=== PATIENT | male | born 1975 | race American Indian/Alaskan Native ===

== ENCOUNTER 2017-03-17 06:34 | Emergency (ER) | payer MEDICAID, MEDICARE, OTHER ==
[2017-03-17 06:37] VITALS: BMI 30.3
[2017-03-17 06:54] VITALS: RESP 16
[2017-03-17 07:48] LABS: BASO % 0.3 % (0.0-2.0); EOS % 0.4 % (0.0-4.0); HEMOGLOBIN 13.5 g/dL (12.0-18.0); LYMPH # 2.3 K/uL (1.0-4.3); MEAN CELL VOLUME 89.9 fL (80.0-94.0); MEAN CORPUSCULAR HEMOGLOBIN 31.2 pg (27.0-31.0); MEAN CORPUSCULAR HGB CONC 34.7 g/dL (33.0-37.0); MEAN PLATELET VOLUME 8.4 fL (7.2-11.7); MONO # 0.9 K/uL (0.0-0.8); MONO % 10.5 % (0.0-10.0); NEUT # 5.5 K/uL (1.8-7.0); NEUT % 62.8 % (50.0-75.0); RBC 4.34 Mil/uL (4.40-5.90); RED CELL DISTRIBUTION WIDTH 12.5 % (11.5-14.5); WHITE BLOOD COUNT 8.7 K/uL (4.8-10.8)
[2017-03-17 08:02] LABS: DILANTIN (PHENYTOIN) 9.3 ug/mL (10-20)
[2017-03-17] MEDS ORDERED: PHENYTOIN IV STA (08:05)
[2017-03-17] MEDS ORDERED: SODIUM CHLORIDE 0.9% IV STA (08:05)
[2017-03-17 08:08] LABS: ALB/GLOB RATIO 1.1 (1.0-2.1); ALT/SGPT 30 U/L (21-72); AST/SGOT 38 U/L (17-59); BLOOD UREA NITROGEN 15 mg/dL (9-20); CALCIUM 8.5 mg/dl (8.6-10.4); GFR AFRICAN-AMERICAN > 60; GFR NON-AFRICAN AMERICAN > 60
--- NOTE | 2017-03-17 08:12 | C.PDOC ---
History Of Present Illness 41 year old male presents to ED for evaluation of seizure witnessed by his father last night. Pt states that he ran out of his seizure medication 1 month ago, notes that he normally takes Dilantin, and Depakote. Otherwise, denies fever, chills, cough, visual changes, tongue biting, bowel/bladder incontinence , head injury, chest pain, or shortness of breath. Time Seen by Provider: 03/17/17 07:11 Chief Complaint (Nursing): Seizure History Per: Patient History/Exam Limitations: no limitations Recent Seizure Activity Began: Days Ago: Length Of Seizures (Duration): Unknown Recent travel outside of the [place]: No Additional History Per: Patient Past Medical History Reviewed: Historical Data, Nursing Documentation, Vital Signs Vital Signs: Last Vital Signs Temp 98.1 F 03/17/17 06:43 Pulse 110 H 03/17/17 06:43 Resp 16 03/17/17 06:43 BP 145/92 H 03/17/17 06:43 Pulse Ox 99 03/17/17 08:34 - Medical History PMH: Anxiety, Asthma, Bipolar Disorder, Depression, HTN, Schizophrenia, Seizures (since he was 11 yo) Denies: Diabetes, Hepatitis, HIV, Chronic Kidney Disease, Sexually Transmitted Disease - [facility] Procedures EDUCATIONAL COUNSELING (04/18/15) GROUP TEXTILE SCRAP SALVAGER FOR SUBSTANCE ABUSE TREATMENT, PSYCHOEDUCATION (09/27/15) GROUP PSYCHOTHERAPY (12/07/15) MAGNETIC RESONANCE IMAGING OF BRAIN AND BRAIN STEM (11/19/00) MEDICATION MANAGEMENT (10/13/15) PSYCHIAT DRUG THERAP NEC (10/17/14) Family History: States: Unknown Family Hx - Social History Hx Tobacco Use: Yes Hx Alcohol Use: No Hx Substance Use: Yes - Immunization History Hx Tetanus Toxoid Vaccination: No Hx Influenza Vaccination: No Hx Pneumococcal Vaccination: No Review Of Systems Except As Marked, All Systems Reviewed And Found Negative. Constitutional: Negative for: Fever, Chills Cardiovascular: Negative for: Chest Pain, Palpitations Respiratory: Negative for: Cough, Shortness of Breath Gastrointestinal: Negative for: Nausea, Vomiting, Abdominal Pain Neurological: Positive for: Seizures. Negative for: Headache, Dizziness Physical Exam - Physical Exam Appears: Non-toxic, No Acute Distress Skin: Normal Color, Warm, Dry Head: Atraumatic, Normacephalic Eye(s): bilateral: Normal Inspection Oral Mucosa: Moist Tongue: Normal Appearing, No Bite Lips: Normal Appearing, No Lesions Neck: Supple Cardiovascular: Rhythm Regular, No Murmur Respiratory: Normal Breath Sounds, No Rales, No Rhonchi, No Wheezing Gastrointestinal/Abdominal: Soft, No Tenderness Extremity: Normal ROM, No Deformity Neurological/Psych: Oriented x3, Normal Speech, Normal Cognition ED Course And Treatment - Laboratory Results Result Diagrams: 03/17/17 07:35 03/17/17 07:35 O2 Sat by Pulse Oximetry: 99 Medical Decision Making Medical Decision Making: Plan: Blood work Elie Placed a call to patient's pharmacy but unable to obtain information about patient's medications. Patient is being discharged home with instructions to follow up with PMD in 1-2 days for further evaluation. Return to ED if symptoms persist or worsen. Disposition Counseled Patient/Family Regarding: Studies Performed, Diagnosis, Need For Followup, Rx Given - Disposition Referrals: [facility] [Outside] Disposition: HOME/ ROUTINE Disposition Time: 08:30 Condition: STABLE Additional Instructions: follow up with your doctor or medical clinic in 2 days call to make an appointment take medications as prescribed return to ER if symptoms worsens or progress Prescriptions: Phenytoin, Extended [Dilantin Kapseals] 100 mg PO TID #60 cer Instructions: Epilepsy (ED) Forms: [facility] (Ukrainian), General Discharge Instructions - Clinical Impression Clinical Impression: Tonic-clonic seizure - Scribe Statement The provider has reviewed the documentation as recorded by the Belibmarisa Howell All medical record entries made by the Belibmarisa were at my direction and personally dictated by me. I have reviewed the chart and agree that the record accurately reflects my personal performance of the history, physical exam, medical decision making, and the department course for this patient. I have also personally directed, reviewed, and agree with the discharge instructions and disposition.
[2017-03-17 09:27] VITALS: BP 148/90; PULSE 91; TEMP 97.7; O2SAT 100
== END 2017-03-17 09:31 | disposition home or self-care (01) ==
LOC: C.ER 06:34
DX: G40.409 Other generalized epilepsy and epileptic syndromes, not intractable, without status epilepticus (principal); I10 Essential (primary) hypertension; Z72.0 Tobacco use
CPT/HCPCS: 80053; 80164; 80185; 82948; 85025; 96360; 99285; J1165

== ENCOUNTER 2018-02-13 11:55 | Emergency (ER) | payer MEDICAID, MEDICARE ==
[2018-02-13 11:56] VITALS: BMI 26.9
[2018-02-13 13:31] LABS: BASO % 0.2 % (0.0-2.0); EOS # 0.1 K/uL (0.0-0.7); EOS % 1.6 % (0.0-4.0); HEMOGLOBIN 14.7 g/dL (12.0-18.0); LYMPH # 1.3 K/uL (1.0-4.3); LYMPH % 20.3 % (20.0-40.0); MEAN CORPUSCULAR HEMOGLOBIN 32.1 pg (27.0-31.0); MEAN CORPUSCULAR HGB CONC 33.3 g/dL (33.0-37.0); MEAN PLATELET VOLUME 7.9 fL (7.2-11.7); MONO # 0.5 K/uL (0.0-0.8); MONO % 8.5 % (0.0-10.0); NEUT # 4.3 K/uL (1.8-7.0); NEUT % 69.4 % (50.0-75.0); RBC 4.57 Mil/uL (4.40-5.90); RED CELL DISTRIBUTION WIDTH 13.2 % (11.5-14.5); WHITE BLOOD COUNT 6.2 K/uL (4.8-10.8)
[2018-02-13 13:32] LABS: MEAN CELL VOLUME 96.5 fL (80.0-94.0)
[2018-02-13 13:47] LABS: ALB/GLOB RATIO 1.1 (1.0-2.1); ALT/SGPT 49 U/L (21-72); AST/SGOT 35 U/L (17-59); BLOOD UREA NITROGEN 14 mg/dL (9-20); CALCIUM 8.7 mg/dl (8.6-10.4); GFR NON-AFRICAN AMERICAN > 60
[2018-02-13 14:46] LABS: URINE BILIRUBIN NEGATIVE (NEGATIVE); URINE BLOOD NEGATIVE (NEGATIVE); URINE CLARITY Clear (Clear); URINE COLOR Yellow (YELLOW); URINE GLUCOSE (UA) NORMAL (Normal); URINE LEUKOCYTE ESTERASE NEG Leu/uL (Negative); URINE PROTEIN 1+ mg/dL (NEGATIVE)
--- NOTE | 2018-02-13 14:54 | C.PDOC ---
History Of Present Illness 42 year old male is brought into the emergency department by BLS for bizarre behavior after being found outside. Patient is currently not speaking to ED employees. He offers no complaints at this time. Time Seen by Provider: 02/13/18 12:27 Chief Complaint (Nursing): Psychiatric Evaluation History Per: EMS History/Exam Limitations: other (unwilling to speak to ED employees) Past Medical History Reviewed: Historical Data, Nursing Documentation, Vital Signs Vital Signs: Last Vital Signs Temp 97.6 F 02/13/18 14:35 Pulse 67 02/13/18 14:35 Resp 18 02/13/18 14:35 BP 139/81 02/13/18 14:35 Pulse Ox 100 02/13/18 14:35 - Medical History PMH: Anxiety, Asthma, Bipolar Disorder, Depression, HTN, Schizophrenia, Seizures (since he was 11 yo) Denies: Diabetes, Hepatitis, HIV, Chronic Kidney Disease, Sexually Transmitted Disease - [facility] Procedures EDUCATIONAL COUNSELING (04/18/15) GROUP PRESCHOOL PROGRAM DIRECTOR FOR SUBSTANCE ABUSE TREATMENT, PSYCHOEDUCATION (09/27/15) GROUP PSYCHOTHERAPY (12/07/15) MAGNETIC RESONANCE IMAGING OF BRAIN AND BRAIN STEM (11/19/00) MEDICATION MANAGEMENT (10/13/15) PSYCHIAT DRUG THERAP NEC (10/17/14) Family History: States: Unknown Family Hx - Social History Hx Tobacco Use: Yes Hx Alcohol Use: No Hx Substance Use: Yes (marijuana) - Immunization History Hx Tetanus Toxoid Vaccination: No Hx Influenza Vaccination: No Hx Pneumococcal Vaccination: No Review Of Systems Review Of Systems: ROS cannot be obtained secondary to pt's inabilty to answer questions. Physical Exam - Physical Exam Appears: Non-toxic Skin: Normal Color, Warm, Dry Head: Atraumatic, Normacephalic Eye(s): bilateral: Normal Inspection, PERRL, EOMI Nose: Normal Oral Mucosa: Moist Neck: Normal, Supple Chest: Symmetrical, No Tenderness Cardiovascular: Rhythm Regular, No Murmur Respiratory: Normal Breath Sounds, No Rales, No Rhonchi, No Wheezing Gastrointestinal/Abdominal: Soft, No Tenderness, No Guarding, No Rebound Extremity: Bilateral: Atraumatic, Normal Color And Temperature, Normal ROM Neurological/Psych: No Oriented x3, No Normal Speech, Other (unable to fully assess ) ED Course And Treatment - Laboratory Results Result Diagrams: 02/13/18 13:21 02/13/18 13:21 O2 Sat by Pulse Oximetry: 100 (RA) Pulse Ox Interpretation: Normal Medical Decision Making Medical Decision Making: Plan: Chemistry CBC Urinalysis Assessment: Psychosis Patient is not speaking, and has to be screened by [facility]. case s/o to Dr. Agosto at 1900 pending [facility] [place] crisis screening. Disposition - Disposition Disposition Time: 19:00 Condition: STABLE Forms: [facility] (Chinese) - Clinical Impression Clinical Impression: Psychosis - Scribe Statement The provider has reviewed the documentation as recorded by the Scribe (Javi Rodriguez) Provider Attestation: All medical record entries made by the Scribe were at my direction and personally dictated by me. I have reviewed the chart and agree that the record accurately reflects my personal performance of the history, physical exam, medi santiago decision making, and the department course for this patient. I have also personally directed, reviewed, and agree with the discharge instructions and disposition. Physician Patient Turnover Patient Signed Over To: Verona Agosto
[2018-02-13 15:11] LABS: BARBITURATES, UR NEGATIVE (NEGATIVE); BENZODIAZEPINES, UR NEGATIVE (NEGATIVE); OPIATES, UR NEGATIVE (NEGATIVE); PHENCYCLIDINE, UR NEGATIVE (NEGATIVE)
[2018-02-14 08:48] VITALS: O2SAT 99
--- NOTE | 2018-02-14 10:19 | RAD ---
HISTORY: MED CLEAR COMPARISON: Chest x-ray performed 08/02/12 TECHNIQUE: Chest, one view. FINDINGS: LUNGS: Bilateral hilar prominence. No focal consolidation. Please note that chest x-ray has limited sensitivity for the detection of pulmonary masses. PLEURA: No significant pleural effusion identified. No definite pneumothorax . CARDIOVASCULAR: Heart size appears within normal limits. No significant atherosclerotic calcification present. OSSEOUS STRUCTURES: No acute osseous abnormality identified. VISUALIZED UPPER ABDOMEN: Unremarkable. OTHER FINDINGS: None. IMPRESSION: Bilateral hilar prominence. No focal consolidation appreciated. Hypoinflation.
[2018-02-14 12:18] VITALS: BP 128/79; PULSE 68; RESP 16; TEMP 98.3
--- NOTE | 2018-02-15 19:13 | CARD ---
APPROVED REPORT Date of service: 02/14/2018 EKG Measurement Heart [id number] <Conclusion> Normal sinus rhythm Normal ECG
== END 2018-02-14 12:40 | disposition short-term general hospital (02) ==
LOC: C.ER 11:55
DX: F29 Unspecified psychosis not due to a substance or known physiological condition (principal)
CPT/HCPCS: 71045; 80053; 81001; 83735; 84100; 85025; 93005; 99285; G0480

== ENCOUNTER 2018-03-07 14:55 | Emergency (ER) | payer MEDICARE ==
[2018-03-07 14:56] VITALS: BMI 26.9
--- NOTE | 2018-03-07 16:07 | C.PDOC ---
History Of Present Illness 42yo male with history of schizophrenia, brought to ER for evaluation of bizarre behavior. Patient currently in ER, and is refusing to speak to ED employees. Patient noted to be eating a sandwich and is in no acute distress. Patient was here for similar complaint 1 month ago, and was transferred to another institution. <Shawn Villalba - Last Filed: 03/08/18 00:29> History Per: Patient History/Exam Limitations: other (uncooperative, refusing to speak to ER staff) <Shawn Villalba - Last Filed: 03/08/18 00:29> <Verona Agosto - Last Filed: 03/08/18 02:07> <Stephanie Dan - Last Filed: 03/08/18 10:21> Time Seen by Provider: 03/07/18 15:05 Chief Complaint (Nursing): Psychiatric Evaluation Past Medical History Reviewed: Historical Data, Nursing Documentation, Vital Signs Vital Signs: Last Vital Signs Temp 97.6 F 03/07/18 15:07 Pulse 75 03/07/18 15:07 Resp 20 03/07/18 15:07 BP 143/82 03/07/18 15:07 Pulse Ox 99 03/07/18 15:07 - Medical History PMH: Anxiety, Asthma, Bipolar Disorder, Depression, HTN, Schizophrenia, Seizures (since he was 11 yo) Denies: Diabetes, Hepatitis, HIV, Chronic Kidney Disease, Sexually Transmitted Disease Surgical History: No Surg Hx - [facility] Procedures EDUCATIONAL COUNSELING (04/18/15) GROUP TAPPER SHANK FOR SUBSTANCE ABUSE TREATMENT, PSYCHOEDUCATION (09/27/15) GROUP PSYCHOTHERAPY (12/07/15) MAGNETIC RESONANCE IMAGING OF BRAIN AND BRAIN STEM (11/19/00) MEDICATION MANAGEMENT (10/13/15) PSYCHIAT DRUG THERAP NEC (10/17/14) Family History: States: Unknown Family Hx - Social History Hx Tobacco Use: Yes Hx Alcohol Use: Yes Hx Substance Use: Yes (marijuana) - Immunization History Hx Tetanus Toxoid Vaccination: No Hx Influenza Vaccination: No Hx Pneumococcal Vaccination: No <Shawn Villalba - Last Filed: 03/08/18 00:29> Vital Signs: Last Vital Signs Temp 97.1 F L 03/07/18 22:00 Pulse 84 03/07/18 22:00 Resp 20 03/07/18 22:00 BP 132/68 03/07/18 22:00 Pulse Ox 99 03/08/18 00:30 - [facility] Procedures EDUCATIONAL COUNSELING (04/18/15) GROUP TAPPER SHANK FOR SUBSTANCE ABUSE TREATMENT, PSYCHOEDUCATION (09/27/15) GROUP PSYCHOTHERAPY (12/07/15) MAGNETIC RESONANCE IMAGING OF BRAIN AND BRAIN STEM (11/19/00) MEDICATION MANAGEMENT (10/13/15) PSYCHIAT DRUG THERAP NEC (10/17/14) <Verona Agosto - Last Filed: 03/08/18 02:07> Vital Signs: Last Vital Signs Temp 97.6 F 03/08/18 07:17 Pulse 63 03/08/18 07:17 Resp 20 03/08/18 07:17 BP 148/83 03/08/18 07:17 Pulse Ox 100 03/08/18 07:17 - [facility] Procedures EDUCATIONAL COUNSELING (04/18/15) GROUP TAPPER SHANK FOR SUBSTANCE ABUSE TREATMENT, PSYCHOEDUCATION (09/27/15) GROUP PSYCHOTHERAPY (12/07/15) MAGNETIC RESONANCE IMAGING OF BRAIN AND BRAIN STEM (11/19/00) MEDICATION MANAGEMENT (10/13/15) PSYCHIAT DRUG THERAP NEC (10/17/14) <Stephanie Dan - Last Filed: 03/08/18 10:21> Review Of Systems Review Of Systems: ROS cannot be obtained secondary to pt's inabilty to answer questions. (uncooperative) <Shawn Villalba - Last Filed: 03/08/18 00:29> Physical Exam - Physical Exam Appears: Non-toxic Skin: Normal Color Head: Normacephalic Eye(s): bilateral: Normal Inspection Neck: Supple Chest: Symmetrical Cardiovascular: Rhythm Regular Respiratory: Normal Breath Sounds Gastrointestinal/Abdominal: Normal Exam, Soft Extremity: Normal ROM <Shawn Villalba - Last Filed: 03/08/18 00:29> ED Course And Treatment - Laboratory Results Result Diagrams: 03/07/18 16:06 03/07/18 16:06 ECG: Interpreted By Me, Viewed By Me ECG Rhythm: Sinus Rhythm ECG Interpretation: No Acute Changes Rate From EC O2 Sat by Pulse Oximetry: 99 (RA) Pulse Ox Interpretation: Normal - Radiology CXR: Interpreted by Me, Viewed By Me CXR Interpretation: Yes: No Acute Disease. No: Infiltrates <Shawn Villalba - Last Filed: 03/08/18 00:29> - Laboratory Results Result Diagrams: 03/07/18 16:06 03/07/18 16:06 Lab Results: Total Bilirubin 0.6 mg/dL (0.2-1.3) 03/07/18 16:06 AST 38 U/L (17-59) 03/07/18 16:06 ALT 40 U/L (21-72) 03/07/18 16:06 Alkaline Phosphatase 98 U/L (38-126) 03/07/18 16:06 Total Protein 7.9 g/dL (6.3-8.3) 03/07/18 16:06 Albumin 4.5 g/dL (3.5-5.0) 03/07/18 16:06 Globulin 3.4 gm/dL (2.2-3.9) 03/07/18 16:06 Albumin/Globulin Ratio 1.3 (1.0-2.1) 03/07/18 16:06 Urine Color Sophie (YELLOW) 03/07/18 16:26 Urine Clarity Clear (Clear) 03/07/18 16:26 Urine pH 5.0 (5.0-8.0) 03/07/18 16:26 Ur Specific [place] 1.035 (1.003-1.030) H 03/07/18 16:26 Urine Protein 1+ mg/dL (NEGATIVE) H 03/07/18 16:26 Urine Glucose (UA) Normal mg/dL (Normal) 03/07/18 16:26 Urine Ketones Trace mg/dL (NEGATIVE) 03/07/18 16:26 Urine Blood Negative (NEGATIVE) 03/07/18 16:26 Urine Nitrate Negative (NEGATIVE) 03/07/18 16:26 Urine Bilirubin 1+ (NEGATIVE) H 03/07/18 16:26 Urine Urobilinogen 4.0 mg/dL (0.2-1.0) 03/07/18 16:26 Ur Leukocyte Esterase Neg Marquise/uL (Negative) 03/07/18 16:26 Urine WBC (Auto) 3 /hpf (0-5) 03/07/18 16:26 Urine RBC (Auto) 1 /hpf (0-3) 03/07/18 16:26 Ur Squamous Epith Cells 1 /hpf (0-5) 03/07/18 16:26 Pulse Ox Interpretation: Normal Progress Note: 2:08 AM Pt was [place] [facility] [place] are no available beds at the present time. <Verona Agosto - Last Filed: 03/08/18 02:07> - Laboratory Results Result Diagrams: 03/07/18 16:06 03/07/18 16:06 Lab Results: Total Bilirubin 0.6 mg/dL (0.2-1.3) 03/07/18 16:06 AST 38 U/L (17-59) 03/07/18 16:06 ALT 40 U/L (21-72) 03/07/18 16:06 Alkaline Phosphatase 98 U/L (38-126) 03/07/18 16:06 Total Protein 7.9 g/dL (6.3-8.3) 03/07/18 16:06 Albumin 4.5 g/dL (3.5-5.0) 03/07/18 16:06 Globulin 3.4 gm/dL (2.2-3.9) 03/07/18 16:06 Albumin/Globulin Ratio 1.3 (1.0-2.1) 03/07/18 16:06 Urine Color Sophie (YELLOW) 03/07/18 16:26 Urine Clarity Clear (Clear) 03/07/18 16:26 Urine pH 5.0 (5.0-8.0) 03/07/18 16:26 Ur Specific [place] 1.035 (1.003-1.030) H 03/07/18 16:26 Urine Protein 1+ mg/dL (NEGATIVE) H 03/07/18 16:26 Urine Glucose (UA) Normal mg/dL (Normal) 03/07/18 16:26 Urine Ketones Trace mg/dL (NEGATIVE) 03/07/18 16:26 Urine Blood Negative (NEGATIVE) 03/07/18 16:26 Urine Nitrate Negative (NEGATIVE) 03/07/18 16:26 Urine Bilirubin 1+ (NEGATIVE) H 03/07/18 16:26 Urine Urobilinogen 4.0 mg/dL (0.2-1.0) 03/07/18 16:26 Ur Leukocyte Esterase Neg Marquise/uL (Negative) 03/07/18 16:26 Urine WBC (Auto) 3 /hpf (0-5) 03/07/18 16:26 Urine RBC (Auto) 1 /hpf (0-3) 03/07/18 16:26 Ur Squamous Epith Cells 1 /hpf (0-5) 03/07/18 16:26 <Stephanie Dan - Last Filed: 03/08/18 10:21> Medical Decision Making Medical Decision Making: Impression: Psychiatric evaluation Plan: -- Labs -- Urinalysis 1656 Patient medically cleared CXR and EKG added on for clearance. EKG: NSR at 61 bpm, no ST/T wave changes CXR shows NAD Patient is medically cleared for psychiatric admission. P[place] [facility] [place]. 100: shaq dout to material handler 2nd shift pending [facility] [place] screening. <Shawn Villalba - Last Filed: 03/08/18 00:29> Medical Decision Makin:08 Patient now has a bed at [facility] [place] Dr. Aurelia Escamilla, diagnosed with Schizophrenia. <Stephanie Dan - Last Filed: 03/08/18 10:21> Disposition - Disposition Disposition Time: 00:30 <Shawn Villalba - Last Filed: 03/08/18 00:29> <Verona Agosto - Last Filed: 03/08/18 02:07> <Stephanie Dan - Last Filed: 03/08/18 10:21> - Disposition Condition: FAIR Forms: [facility] (Polish) - Clinical Impression Clinical Impression: Bizarre behavior, Schizophrenia - Scribe Statement The provider has reviewed the documentation as recorded by the Bailee Wolfe Provider Attestation: All medical record entries made by the Belibe were at my direction and personally dictated by me. I have reviewed the chart and agree that the record accurately reflects my personal performance of the history, physical exam, medical decision making, and the department course for this patient. I have also personally directed, reviewed, and agree with the discharge instructions and disposition. <Shawn Villalba - Last Filed: 03/08/18 00:29> Physician Patient Turnover Patient Signed Over To: Stephanie Dan Handoff Comments: [place] availability [place] [facility] [place] <Verona Agosto - Last Filed: 03/08/18 02:07>
[2018-03-07 16:11] LABS: BASO % 0.4 % (0.0-2.0); EOS # 0.2 K/uL (0.0-0.7); EOS % 3.4 % (0.0-4.0); HEMOGLOBIN 14.4 g/dL (12.0-18.0); LYMPH # 2.3 K/uL (1.0-4.3); LYMPH % 43.1 % (20.0-40.0); MEAN CELL VOLUME 96.5 fL (80.0-94.0); MEAN CORPUSCULAR HEMOGLOBIN 32.1 pg (27.0-31.0); MEAN CORPUSCULAR HGB CONC 33.3 g/dL (33.0-37.0); MEAN PLATELET VOLUME 7.4 fL (7.2-11.7); MONO # 0.4 K/uL (0.0-0.8); MONO % 8.3 % (0.0-10.0); NEUT # 2.4 K/uL (1.8-7.0); NEUT % 44.8 % (50.0-75.0); NRBC % 0.2 % (0.0-2.0); RBC 4.49 Mil/uL (4.40-5.90); RED CELL DISTRIBUTION WIDTH 13.1 % (11.5-14.5); WHITE BLOOD COUNT 5.3 K/uL (4.8-10.8)
[2018-03-07 16:23] LABS: ACETAMINOPHEN < 10.0 ug/mL (10.0-30.0); SALICYLATE < 1.0 mg/dL 1
[2018-03-07 16:27] LABS: ALB/GLOB RATIO 1.3 (1.0-2.1); ALBUMIN 4.5 g/dL (3.5-5.0); ALT/SGPT 40 U/L (21-72); AST/SGOT 38 U/L (17-59); BLOOD UREA NITROGEN 11 mg/dL (9-20); CALCIUM 8.9 mg/dl (8.6-10.4); GFR NON-AFRICAN AMERICAN > 60
[2018-03-07 16:44] LABS: SQUAMOUS EPITHIAL 1 /hpf (0-5); URINE BILIRUBIN 1+ (NEGATIVE); URINE BLOOD NEGATIVE (NEGATIVE); URINE CLARITY Clear (Clear); URINE COLOR Amber (YELLOW); URINE GLUCOSE (UA) NORMAL (Normal); URINE LEUKOCYTE ESTERASE NEG Leu/uL (Negative); URINE PROTEIN 1+ mg/dL (NEGATIVE)
[2018-03-07 16:48] LABS: BARBITURATES, UR NEGATIVE (NEGATIVE); BENZODIAZEPINES, UR NEGATIVE (NEGATIVE); OPIATES, UR NEGATIVE (NEGATIVE); PHENCYCLIDINE, UR NEGATIVE (NEGATIVE)
[2018-03-07 22:39] VITALS: RESP 20
[2018-03-08 07:18] VITALS: O2SAT 100
[2018-03-08 10:43] VITALS: BP 123/79; PULSE 58; TEMP 97.9
--- NOTE | 2018-03-08 11:34 | RAD ---
Date of service: 03/07/2018 HISTORY: psych COMPARISON: Portable chest 02/14/2018. FINDINGS: LUNGS: No active pulmonary disease. PLEURA: No significant pleural effusion identified, no pneumothorax apparent. CARDIOVASCULAR: No aortic atherosclerotic calcification present. Normal cardiac size. No pulmonary vascular congestion. OSSEOUS STRUCTURES: No significant abnormalities. VISUALIZED UPPER ABDOMEN: Normal. OTHER FINDINGS: None. IMPRESSION: No interval acute cardiopulmonary disease appreciated.
--- NOTE | 2018-03-09 18:33 | CARD ---
APPROVED REPORT Date of service: 03/07/2018 EKG Measurement Heart [id number] <Conclusion> Normal sinus rhythm Normal ECG
== END 2018-03-08 11:14 | disposition short-term general hospital (02) ==
LOC: C.ER 14:55
DX: F20.9 Schizophrenia, unspecified (principal); R46.89 Other symptoms and signs involving appearance and behavior; R46.2 Strange and inexplicable behavior; I10 Essential (primary) hypertension; Z72.0 Tobacco use
CPT/HCPCS: 71045; 80053; 81001; 83735; 84100; 85025; 93005; 99285; G0480

== ENCOUNTER 2018-05-16 03:19 | Emergency (ER) | payer SELFPAY ==
--- NOTE | 2018-05-16 03:48 | C.PDOC ---
History Of Present Illness 43 year old male presents to the ED stating " I want to be admitted". Patient states he is unable to afford his medications and due to it is not allowed in his long-term. Patient however reports his last dose of medications was this mo rning. Patient does not offer specific complaint besides " I need to be admitted because of my schizo effective". Patient is a poor historian. Patient has multiple prior ED evaluations for nonspecific complaints, subsequently [place] [facility] [place]. POOR HISTORIAN MULT PRIOR ER VISITS FOR NONSPECIFIC COMPLAINTS, SUBSEQUENTLY TRANSFERRED [place] [facility] <Jerilyn Gasca - Last Filed: 05/16/18 06:43> History Per: Patient History/Exam Limitations: no limitations Onset/Duration Of Symptoms: Hrs Current Symptoms Are (Timing): Still Present Suicide/Self Injury Attempted (Context): None Associated Symptoms: denies: Depression, Suicidal Thoughts, Suicidal Plan Recent travel outside of the [place]: No Additional History Per: Patient <Jerilyn Gasca - Last Filed: 05/16/18 06:43> Past Medical History Reviewed: Historical Data, Nursing Documentation, Vital Signs - Medical History PMH: Anxiety, Asthma, Bipolar Disorder, Depression, HTN, Schizophrenia, Seizures (since he was 11 yo) Denies: Diabetes, Hepatitis, HIV, Chronic Kidney Disease, Sexually Transmitted Disease Surgical History: No Surg Hx - [facility] Procedures EDUCATIONAL COUNSELING (04/18/15) GROUP MEDICAL AFFAIRS DIRECTOR FOR SUBSTANCE ABUSE TREATMENT, PSYCHOEDUCATION (09/27/15) GROUP PSYCHOTHERAPY (12/07/15) MAGNETIC RESONANCE IMAGING OF BRAIN AND BRAIN STEM (11/19/00) MEDICATION MANAGEMENT (10/13/15) PSYCHIAT DRUG THERAP NEC (10/17/14) Family History: States: Unknown Family Hx - Social History Hx Tobacco Use: Yes Hx Alcohol Use: Yes Hx Substance Use: Yes (marijuana) - Immunization History Hx Tetanus Toxoid Vaccination: No Hx Influenza Vaccination: No Hx Pneumococcal Vaccination: No <Jerilyn Gasca - Last Filed: 05/16/18 06:43> Vital Signs: Last Vital Signs Temp 98.3 F 05/16/18 06:24 Pulse 62 05/16/18 06:24 Resp 16 05/16/18 06:24 BP 114/68 05/16/18 06:24 Pulse Ox 100 05/16/18 06:44 - [facility] Procedures EDUCATIONAL COUNSELING (04/18/15) GROUP MEDICAL AFFAIRS DIRECTOR FOR SUBSTANCE ABUSE TREATMENT, PSYCHOEDUCATION (09/27/15) GROUP PSYCHOTHERAPY (12/07/15) MAGNETIC RESONANCE IMAGING OF BRAIN AND BRAIN STEM (11/19/00) MEDICATION MANAGEMENT (10/13/15) PSYCHIAT DRUG THERAP NEC (10/17/14) <Mark Martineztlin Bao - Last Filed: 05/16/18 08:58> Review Of Systems Constitutional: Negative for: Fever, Chills Cardiovascular: Negative for: Chest Pain Respiratory: Negative for: Shortness of Breath Gastrointestinal: Negative for: Nausea, Vomiting, Abdominal Pain Skin: Negative for: Rash Neurological: Negative for: Weakness, Numbness Psych: Negative for: Depression, Suicidal ideation <Jerilyn Gasca Last Filed: 05/16/18 06:43> Physical Exam - Physical Exam Appears: Non-toxic, No Acute Distress Skin: Normal Color, Warm, Dry Head: Atraumatic, Normacephalic Eye(s): bilateral: Normal Inspection Neck: Normal ROM, Supple Chest: Symmetrical Cardiovascular: Rhythm Regular Respiratory: Normal Breath Sounds, No Rales, No Rhonchi Gastrointestinal/Abdominal: Soft, No Tenderness, No Guarding, No Rebound Extremity: Normal ROM, No Tenderness, No Swelling Neurological/Psych: Oriented x3, Normal Speech, Other (calm, cooperativem no acute intoxication. Follows commands) Gait: Steady <Jerilyn Gasca Last Filed: 05/16/18 06:43> ED Course And Treatment - Laboratory Results Result Diagrams: 05/16/18 04:09 05/16/18 04:09 ECG: Interpreted By Me, Viewed By Me ECG Rhythm: Sinus Rhythm Rate From EC (BPM) O2 Sat by Pulse Oximetry: 100 (ON RA) Pulse Ox Interpretation: Normal - Radiology CXR: Interpreted by Me CXR Interpretation: Yes: No Acute Disease <Jerilyn Gasca Last Filed: 05/16/18 06:43> - Laboratory Results Result Diagrams: 05/16/18 04:09 05/16/18 04:09 Lab Results: Total Bilirubin 0.7 mg/dL (0.2-1.3) 05/16/18 04:09 AST 30 U/L (17-59) 05/16/18 04:09 ALT 13 U/L (21-72) L D 05/16/18 04:09 Alkaline Phosphatase 82 U/L (38-126) 05/16/18 04:09 Total Protein 7.7 g/dL (6.3-8.3) 05/16/18 04:09 Albumin 4.3 g/dL (3.5-5.0) 05/16/18 04:09 Globulin 3.4 gm/dL (2.2-3.9) 05/16/18 04:09 Albumin/Globulin Ratio 1.3 (1.0-2.1) 05/16/18 04:09 Urine Color Yellow (YELLOW) 05/16/18 04:02 Urine Clarity Clear (Clear) 05/16/18 04:02 Urine pH 5.0 (5.0-8.0) 05/16/18 04:02 Ur Specific [place]ton 1.023 (1.003-1.030) 05/16/18 04:02 Urine Protein Negative mg/dL (NEGATIVE) 05/16/18 04:02 Urine Glucose (UA) Normal mg/dL (Normal) 05/16/18 04:02 Urine Ketones Trace mg/dL (NEGATIVE) 05/16/18 04:02 Urine Blood Negative (NEGATIVE) 05/16/18 04:02 Urine Nitrate Negative (NEGATIVE) 05/16/18 04:02 Urine Bilirubin Negative (NEGATIVE) 05/16/18 04:02 Urine Urobilinogen 4.0 mg/dL (0.2-1.0) 05/16/18 04:02 Ur Leukocyte Esterase Neg Marquise/uL (Negative) 05/16/18 04:02 Urine WBC (Auto) 1 /hpf (0-5) 05/16/18 04:02 Urine RBC (Auto) < 1 /hpf (0-3) 05/16/18 04:02 Ur Squamous Epith Cells 1 /hpf (0-5) 05/16/18 04:02 <Danni Martinez - Last Filed: 05/16/18 08:58> Progress - Re-Evaluation Re-evaluation Note: 05/16/18 06:43 MED CLEAR FOR CRISIS. PENDING CRISIS EVAL - Data Reviewed Data Reviewed: Lab, Diagnostic imaging, EKG, Old records <Jerilyn Gasca - Last Filed: 05/16/18 06:43> Medical Decision Making Medical Decision Making: Plan: * EKG * Labs * CXR * UA <Jerilyn Gasca - Last Filed: 05/16/18 06:43> Disposition - Disposition Disposition Time: 07:00 <CamposJerilyn - Last Filed: 05/16/18 06:43> <Danni Martinez - Last Filed: 05/16/18 08:58> - Disposition Condition: STABLE - Clinical Impression Clinical Impression: Schizoaffective disorder - Scribe Statement The provider has reviewed the documentation as recorded by the Scribe Alvarez Roy All medical record entries made by the Scribe were at my direction and personally dictated by me. I have reviewed the chart and agree that the record accurately reflects my personal performance of the history, physical exam, medical decision making, and the department course for this patient. I have also personally directed, reviewed, and agree with the discharge instructions and disposition. <Jerilyn Gasca - Last Filed: 05/16/18 06:43> Physician Patient Turnover Patient Signed Over To: Danni Martinez Handoff Comments: FU CRISIS, DISPO <Jerilyn Gasca - Last Filed: 05/16/18 06:43> Addendum Addendum: 05/16/18 08:57 Patient endorsed to me by Dr. Rossi at the end of her shift. Patient pending eval by crisis. (am Crisis saw patient, as per Crisis, Dr. Sequeira recommends discharge. Patient to follow up <Danni Martinez - Last Filed: 05/16/18 08:58>
[2018-05-16 03:51] VITALS: RESP 16
[2018-05-16 04:08] LABS: SQUAMOUS EPITHIAL 1 /hpf (0-5); URINE BILIRUBIN NEGATIVE (NEGATIVE); URINE BLOOD NEGATIVE (NEGATIVE); URINE CLARITY Clear (Clear); URINE COLOR Yellow (YELLOW); URINE GLUCOSE (UA) NORMAL (Normal); URINE LEUKOCYTE ESTERASE NEG Leu/uL (Negative); URINE PROTEIN NEGATIVE (NEGATIVE)
[2018-05-16 04:12] LABS: BASO % 0.6 % (0.0-2.0); EOS # 0.2 K/uL (0.0-0.7); EOS % 2.1 % (0.0-4.0); HEMOGLOBIN 14.2 g/dL (12.0-18.0); LYMPH # 2.7 K/uL (1.0-4.3); LYMPH % 34.9 % (20.0-40.0); MEAN CELL VOLUME 94.2 fL (80.0-94.0); MEAN CORPUSCULAR HEMOGLOBIN 31.8 pg (27.0-31.0); MEAN CORPUSCULAR HGB CONC 33.8 g/dL (33.0-37.0); MEAN PLATELET VOLUME 8.1 fL (7.2-11.7); MONO # 0.6 K/uL (0.0-0.8); MONO % 7.7 % (0.0-10.0); NEUT # 4.2 K/uL (1.8-7.0); NEUT % 54.7 % (50.0-75.0); RBC 4.46 Mil/uL (4.40-5.90); RED CELL DISTRIBUTION WIDTH 13.2 % (11.5-14.5); WHITE BLOOD COUNT 7.7 K/uL (4.8-10.8)
[2018-05-16 04:22] LABS: BARBITURATES, UR NEGATIVE (NEGATIVE); BENZODIAZEPINES, UR NEGATIVE (NEGATIVE); OPIATES, UR NEGATIVE (NEGATIVE); PHENCYCLIDINE, UR NEGATIVE (NEGATIVE)
[2018-05-16 04:27] LABS: ALB/GLOB RATIO 1.3 (1.0-2.1); ALBUMIN 4.3 g/dL (3.5-5.0); ALT/SGPT 13 U/L (21-72); AST/SGOT 30 U/L (17-59); BLOOD UREA NITROGEN 16 mg/dL (9-20); CALCIUM 9.3 mg/dl (8.6-10.4); GFR NON-AFRICAN AMERICAN > 60
[2018-05-16 06:25] VITALS: BP 114/68; PULSE 62; TEMP 98.3
[2018-05-16 06:44] VITALS: O2SAT 100
--- NOTE | 2018-05-16 08:44 | RAD ---
Date of service: 05/16/2018 HISTORY: Detox/Psy COMPARISON: 03/07/2018, 02/14/2018 and 08/02/2012 TECHNIQUE: Chest PA and lateral views FINDINGS: LUNGS: No active pulmonary disease. PLEURA: No significant pleural effusion identified. No pneumothorax apparent. CARDIOVASCULAR: No aortic atherosclerotic calcification present. The ascending aorta contour is similar to the 2013 study. Normal cardiac size. No pulmonary vascular congestion. OSSEOUS STRUCTURES: No significant abnormalities. VISUALIZED UPPER ABDOMEN: Normal. OTHER FINDINGS: None. IMPRESSION: No active disease. No interval pathology noted.
--- NOTE | 2018-05-17 11:13 | CARD ---
APPROVED REPORT Date of service: 05/16/2018 EKG Measurement Heart [id number] <Conclusion> Normal sinus rhythm Normal ECG
== END 2018-05-16 09:00 | disposition home or self-care (01) ==
LOC: C.ER 03:19
DX: F25.9 Schizoaffective disorder, unspecified (principal); I10 Essential (primary) hypertension; Z72.0 Tobacco use
CPT/HCPCS: 71046; 80053; 81001; 83735; 84100; 85025; 93005; 99284; G0480